=== PATIENT | female | born 1995 | race African-American/Black ===

== ENCOUNTER 2024-10-09 01:11 | Emergency (ER) | payer OTHER ==
[~2024-10-09] VITALS: Ht 182.9 cm; Wt 99.8 kg
[2024-10-09 02:33] LABS: APPEARANCE,URINE CLOUDY (CLEAR); BLOOD, URINE NEGATIVE Ery/uL (NEGATIVE); LEUKOCYTE ESTERASE ,URINE 2+ (NEGATIVE); NITRITE, URINE NEGATIVE (NEGATIVE); UGLUCOSE NEGATIVE (NEGATIVE)
[2024-10-09 02:36] LABS: ADD URINE CULTURE YES; SQUAMOUS EPITHELIAL CELL,UR Rare /HPF (None Seen)
[2024-10-09] MEDS ORDERED: PNV1TAB.3 PO (02:55)
[2024-10-09 03:06] VITALS: BP 135/75; TEMP 98.3; O2SAT 99
== END 2024-10-09 03:31 | disposition home or self-care (01) ==
LOC: ER 01:25
DX: O09.30 Supervision of pregnancy with insufficient antenatal care, unspecified trimester (principal); R10.2 Pelvic and perineal pain; Z3A.00 Weeks of gestation of pregnancy not specified
CPT/HCPCS: 81001; 87086-TC

== ENCOUNTER → 2024-10-30 | Emergency (ER) | payer OTHER ==
[~2024-10-30] VITALS: Ht 182.9 cm; Wt 72.6 kg
[~2024-10-30] MED LIST: ACET325C7 PO; PNV1TAB.3 PO
[2024-10-30 14:39] LABS: PLATELET COUNT (AUTO) 441 K/uL (150-450); RED BLOOD CELL COUNT(AUTO) 3.78 MIL/uL (4.0-5.2); RED CELL DISTRIBUTION WIDTH 15.7 % (11.5-15.0); WHITE BLOOD COUNT (AUTO) 7.4 K/uL (4.3-11.0)
[2024-10-30 14:45] LABS: CALCIUM, SERUM 9.0 mg/dL (8.5-10.1); CREATININE 1.0 mg/dL (0.6-1.3); SODIUM SERUM 140.0 mmol/L (136-145); UREA NITROGEN, BLOOD 20.0 mg/dL (7-18)
[2024-10-30 14:53] LABS: INR 1.01 (0.91-1.10)
[2024-10-30 14:56] LABS: ASPARTATE AMINOTRANSFERASE 14.0 U/L (15-37); PREGNANCY TEST SERUM QUAN 33.0 mIU/mL (0-6); TOTAL PROTEIN, SERUM 7.4 g/dL (6.4-8.2)
[2024-10-30 16:16] VITALS: BP 109/72; TEMP 98; O2SAT 98
[2024-10-30 16:23] LABS: APPEARANCE,URINE CLEAR (CLEAR); BLOOD, URINE 1+ Ery/uL (NEGATIVE); LEUKOCYTE ESTERASE ,URINE 1+ (NEGATIVE); NITRITE, URINE NEGATIVE (NEGATIVE); UGLUCOSE NEGATIVE (NEGATIVE)
[2024-10-30 16:47] LABS: ADD URINE CULTURE YES
== END | disposition home or self-care (01) ==
LOC: ER 13:55
DX: N93.8 Other specified abnormal uterine and vaginal bleeding (principal); R10.2 Pelvic and perineal pain; Z39.2 Encounter for routine postpartum follow-up
CPT/HCPCS: 36415; 76856-TC; 80048-TC; 80076-TC; 81001; 84702-TC; 85025-TC; 85730-TC; 86850-TC; 87086-TC

== ENCOUNTER 2024-11-24 19:08 | Emergency (ER) | payer OTHER ==
[~2024-11-24] VITALS: Ht 182.9 cm; Wt 90.7 kg
[2024-11-24 19:35] VITALS: BP 122/77; TEMP 97.9; O2SAT 99
== END 2024-11-24 20:33 | disposition home or self-care (01) ==
LOC: ER 19:11
DX: N93.9 Abnormal uterine and vaginal bleeding, unspecified (principal)
CPT/HCPCS: 76856-TC